=== PATIENT | female | born 1995 | race African-American/Black ===

== ENCOUNTER 2017-03-16 21:54 | Emergency (ER) | payer SELFPAY ==
[2017-03-16] MEDS ORDERED: ALBUTEROL20 ml (22:09)
== END 2017-03-16 23:05 | disposition home or self-care (01) ==
LOC: SED 21:54
DX: M25.561 Pain in right knee (principal); G89.29 Other chronic pain; J45.909 Unspecified asthma, uncomplicated; Z91.013 Allergy to seafood
CPT/HCPCS: 99283